=== PATIENT | male | born 1945 | race Caucasian/White ===

== ENCOUNTER 2018-10-21 10:29 | Inpatient (IN) | payer MEDICARE, BC ==
[~2018-10-21] VITALS: Ht 180.3 cm; Wt 78.2 kg
[~2018-10-21 10:29] MED LIST: ALBUTEROL2.5 MG/31 INH; AMITRIPTYLINE H75 M2 PO; ASMANEX220 MC1 INH; BENZONATATE200 MG PO; CALCIUM 600 +1 EAC1 PO; CELEXA 10 MG TA10 M1 PO; CLARITIN10 MG PO; EXPECTORANT200 MG PO; FIBER0.52 GM PO; FLUNISOLIDE25 ML NASAL; FORMOTEROL FUMAR INH; HYDROCHLOROTHIA25 M1 PO; NORVASC5 MG PO; OMEPRAZOLE40 MG PO; PREDNISOLONE 5 M5 M1 PO; PREDNISONE 10 M10 MG PO; PROVENTIL HFA6.7 G1 INH; SINGULAIR 5 MG C5 M1 PO
[2018-10-21 10:34] VITALS: BP 164/67
[2018-10-21] MEDS ORDERED: LORATIDINE 10 M10 M1 PO (10:45)
[2018-10-21] MEDS ORDERED: CARDIZEM CD120 MG PO (10:48)
[2018-10-21] MEDS ORDERED: ZANAFLEX2 MG PO (10:48)
[2018-10-21] MEDS ORDERED: XARELTO10 MG PO (10:48)
[2018-10-21] MEDS ORDERED: FLOMAX0.4 MG PO (10:49)
[2018-10-21 11:17] LABS: ABSOLUTE EOSINOPHILS 0.1 thou/uL (0.0-0.7); ABSOLUTE LYMPHOCYTES 0.7 thou/uL (0.8-5.3); ABSOLUTE MONOCYTES 0.5 thou/uL (0.0-1.2); ABSOLUTE NEUTROPHILS 5.6 thou/uL (1.6-8.1); BASOPHILS 0.5 %; EOSINOPHILS 1.8 %; HEMATOCRIT 42.3 % (42.0-52.0); HEMOGLOBIN 14.5 gm/dL (14.0-18.0); LYMPHOCYTES 10.3 %; MCH 32.8 pg (26.0-34.0); MCHC 34.3 g/dL (28.0-37.0); MCV 95.5 fL (80.0-100.0); MONOCYTES 7.2 %; MPV 8.2 fl. (7.2-11.1); NUCLEATED RBCS 0 /100WBC; PLATELET COUNT* 173 thou/uL (150-400); POLYS 80.2 %; RBC 4.43 mil/uL (4.50-6.00); RDW-CV 13.4 % (10.5-14.5)
[2018-10-21 11:28] LABS: APTT 23.1 Seconds (25.0-31.3); PROTIME 9.8 Seconds (9.20-11.50)
[2018-10-21 11:29] LABS: ALBUMIN 2.5 g/dL (3.4-5.0); CALCIUM 6.9 mg/dL (8.5-10.1); CREATININE 0.9 mg/dL (0.6-1.3); TOTAL BILIRUBIN 0.4 mg/dL (<0.1-1.0); TOTAL PROTEIN 5.3 g/dL (6.4-8.2)
[2018-10-21 11:31] LABS: POTASSIUM 2.5 mmol/L (3.5-5.1)
[2018-10-21 15:30] VITALS: BP 139/78
[2018-10-21 15:55] VITALS: BP 150/82
[2018-10-21 21:40] VITALS: BP 141/74
[2018-10-22] VITALS: BP 120/67
[2018-10-22 03:40] VITALS: BP 128/61
[2018-10-22 04:48] LABS: ABSOLUTE EOSINOPHILS 0.1 thou/uL (0.0-0.7); ABSOLUTE LYMPHOCYTES 1.1 thou/uL (0.8-5.3); ABSOLUTE MONOCYTES 0.6 thou/uL (0.0-1.2); BASOPHILS 0.6 %; EOSINOPHILS 2.1 %; HEMATOCRIT 36.1 % (42.0-52.0); LYMPHOCYTES 18.7 %; MCH 32.4 pg (26.0-34.0); MCHC 34.1 g/dL (28.0-37.0); MCV 95.1 fL (80.0-100.0); MPV 8.3 fl. (7.2-11.1); NUCLEATED RBCS 0 /100WBC; PLATELET COUNT* 163 thou/uL (150-400); POLYS 68.6 %; RDW-CV 13.1 % (10.5-14.5); WBC 5.8 thou/uL (4.0-11.0)
[2018-10-22 05:08] LABS: CALCIUM 8.7 mg/dL (8.5-10.1); POTASSIUM 3.8 mmol/L (3.5-5.1)
[2018-10-22 05:16] LABS: HEMOGLOBIN 12.3 gm/dL (14.0-18.0)
[2018-10-22 08:00] VITALS: BP 149/74
[2018-10-22 12:39] VITALS: BP 149/74
[2018-10-22 14:13] VITALS: BP 154/72
--- NOTE | 2018-10-22 14:15 | EKG ---
[place] [address] ELECTROCARDIOGRAM REPORT Name: ALEXANDRA TOUSSAINT Room: [address] ADM IN M.R.#: [id number] Admission: 10/21/18 Attend Phys: Tonny Montano MD Discharge: Date of : 41 Report #: [id number] THIS REPORT FOR: //name// [facility] ED Test Date: 2018-10-21 Test Time: 14:00:44 Pat Name: ALEXANDRA TOUSSAINT Department: Room: [address] Gender: M Labor Relations Analyst: MILAD : 1945 Requested By: Kareen Gooden Order Number: [id number] [place] MD: Roger Lam Measurements Intervals [place] Rate: 95 P: 50 [place]: 168 QRS: -87 QRSD: 139 T: 37 QT: 384 QTc: 483 Interpretive Statements Sinus rhythm RBBB and L anterior hemiblock Compared to ECG 10/31/2012 21:26:27 Left anterior fascicular block now present Left posterior fascicular block no longer present Electronically Signed On 10-22-2018 14:15:06 CDT by Roger Lam [email or web address] <ELECTRONICALLY SIGNED> By: Roger Lam MD, [facility] 10/22/18 1415 1400 1400 Roger Lam MD, [facility] /EPI
== END 2018-10-22 14:15 | disposition home or self-care (01) | DRG 641 ==
LOC: M.ERS 10:29 → M.3W 13:33 → M.TBA-ER 13:33 → M.3W 15:17
PROVIDERS: Personal Emergency Response Attendant; ADMIT Internal Medicine
DX: E87.6 Hypokalemia (principal); E44.0 Moderate protein-calorie malnutrition; J44.9 Chronic obstructive pulmonary disease, unspecified; K21.9 Gastro-esophageal reflux disease without esophagitis; M79.7 Fibromyalgia; M19.90 Unspecified osteoarthritis, unspecified site; G89.29 Other chronic pain; N40.0 Benign prostatic hyperplasia without lower urinary tract symptoms; Z86.718 Personal history of other venous thrombosis and embolism; Z87.891 Personal history of nicotine dependence; Z79.01 Long term (current) use of anticoagulants; Z79.899 Other long term (current) drug therapy; Z88.8 Allergy status to other drugs, medicaments and biological substances

== ENCOUNTER → 2019-02-24 | Day surgery (SDC) | payer MEDICARE, BC ==
[~2019-02-24] MED LIST changes: +CARDIZEM CD120 MG PO; +FLOMAX0.4 MG PO; +LORATIDINE 10 M10 M1 PO; +XARELTO10 MG PO; +ZANAFLEX2 MG PO
--- NOTE | ~2019-02-24 | PROC ---
[address] [place] [address] PROCEDURE REPORT Name: ALEXANDRA TOUSSAINT Room: [facility]#: [id number] Admission: 02/24/19 Attend Phys: Hardeep Squires DO Discharge: Date of : 41 Report #: [id number] THIS REPORT FOR: //name// For GI report, please see the Provation report in Perceptive 7 content. By: 1212Medical Records Staff [facility] /DALJIT
[2019-02-24 09:23] LABS: HEMATOCRIT 40.6 % (42.0-52.0); HEMOGLOBIN 13.8 gm/dL (14.0-18.0); MCH 32.3 pg (26.0-34.0); MCV 94.8 fL (80.0-100.0); MPV 7.2 fl. (7.2-11.1); RBC 4.28 mil/uL (4.50-6.00); RDW-CV 13.2 % (10.5-14.5); WBC 6.7 thou/uL (4.0-11.0)
[2019-02-24 09:31] LABS: CALCIUM 8.7 mg/dL (8.5-10.1); POTASSIUM 3.7 mmol/L (3.5-5.1)
[2019-02-24 09:36] LABS: ALBUMIN 3.3 g/dL (3.4-5.0); TOTAL BILIRUBIN 0.6 mg/dL (<0.1-1.0); TOTAL PROTEIN 6.5 g/dL (6.4-8.2)
--- NOTE | 2019-02-25 18:06 | PATH ---
[address] [address] PATHOLOGY RPT PROCEDURE Name: RUDDY TOWNSEND Room: [facility]#: [id number] Admission: 02/24/19 Date of : 41 Discharge: Report #: [id number] Path Case #: [id number] [facility] Accession Number: [id number] . 01 Material submitted: . PART A: cecum - CECAL POLYP - HOT SNARE PART B: colon - PROXIMAL ASCENDING COLON POLYP - COLD SNARE. Modifiers: proximal, ascending PART C: colon - PROXIMAL TRANSVERSE COLON POLYP - HOT SNARE. Modifiers: proximal, transverse PART D: colon - MID TRANSVERSE COLON POLYP - HOT SNARE. Modifiers: mid, transverse . 01 Clinical history: . Dysphagia, diarrhea, Wang syndrome, personal Hx of colon polyps . 02 Diagnosis: A. Cecal polyp (hot snare): - Tubular adenoma, negative for high-grade dysplasia. . B. Proximal ascending colon polyp (cold snare): - Tubular adenoma, negative for high-grade dysplasia. . C. Proximal transverse colon polyp (hot snare): - Tubular adenoma, negative for high-grade dysplasia. . D. Mid transverse colon polyp (hot snare): - Tubular adenoma, negative for high-grade dysplasia. (MERA:noelle; 02/25/2019) MBR/02/25/2019 . 02 Electronically signed: . Suresh Boo MD, Pathologist NPI- [id number] . 01 Gross description: . A. Received in formalin labeled "Ruddy Townsend, cecal polyp," and additionally labeled on the requisition as "hot snare," are 3 segments of tay soft tissue measuring 0.8 x 0.5 x 0.3 cm in aggregate dimensions and ranging from 0.1 to 0.3 cm in maximum dimension. The specimen is submitted entirely in cassette A1. . B. Received in formalin labeled "Ruddy Townsend, proximal ascending colon polyp," and additionally labeled on the requisition as "cold snare," is a single segment of tay soft tissue measuring 0.5 cm in maximum dimension. The specimen is entirely submitted in cassette B1. . C. Received in formalin labeled "Ruddy Townsend, [place] [address] PATHOLOGY RPT PROCEDURE Name: RUDDY TOWNSEND Room: [facility]#: [id number] Admission: 02/24/19 Date of : 41 Discharge: Report #: [id number] Path Case #: [id number] colon polyp," and additionally labeled on the requisition as "hot snare," is a single segment of tay soft tissue measuring 0.4 cm in maximum dimension. The specimen is entirely submitted in cassette C1. . D. Received in formalin labeled "Hennrich, Ruddy, mid transverse colon polyp," and additionally labeled on the requisition as "hot snare," are 4 segments of tay soft tissue measuring 1.0 x 0.8 x 0.3 cm in aggregate dimensions and ranging from 0.1 to 0.6 cm in maximum dimension. The specimen is submitted entirely in cassette D1. (TSD; 02/24/2019) TOB/TOB . 02 Pathologist provided ICD-10: D12.0, D12.2, D12.3 . 02 CPT . 082299, 048567, 949335, 014453 Specimen Comment: A courtesy copy of this report has been sent to Specimen Comment: [phone], , . Specimen Comment: Report sent to ,DR JUNG / DR EDWARDS Performed at: [address], [place] [id number] MD Jose Luis Pradhan MD Phone: [phone] Performed at: [facility] [address] [place] , [place], [place] [id number] MD Suresh Boo MD Phone: [phone]
== END | disposition home or self-care (01) ==
LOC: M.SUR 08:15
PROVIDERS: Internal Medicine Gastroenterology
DX: D12.0 Benign neoplasm of cecum (principal); D12.3 Benign neoplasm of transverse colon; D12.2 Benign neoplasm of ascending colon; K57.30 Diverticulosis of large intestine without perforation or abscess without bleeding; R13.10 Dysphagia, unspecified; K64.4 Residual hemorrhoidal skin tags; Z86.010 Personal history of colon polyps; Z88.8 Allergy status to other drugs, medicaments and biological substances; Z79.899 Other long term (current) drug therapy; Z98.890 Other specified postprocedural states

== ENCOUNTER 2019-06-19 21:22 | Emergency (ER) | payer MEDICARE, BC ==
[~2019-06-19] VITALS: Ht 177.8 cm; Wt 79.4 kg
[2019-06-19] MEDS ORDERED: AUGMENTIN 875-1 EACH PO (21:55)
[2019-06-19 22:28] VITALS: BP 170/68
== END 2019-06-19 22:28 | disposition home or self-care (01) ==
LOC: M.ERS 21:22
DX: S51.811A Laceration without foreign body of right forearm, initial encounter (principal); J45.909 Unspecified asthma, uncomplicated; K21.9 Gastro-esophageal reflux disease without esophagitis; Z90.79 Acquired absence of other genital organ(s); Z95.2 Presence of prosthetic heart valve; Z86.718 Personal history of other venous thrombosis and embolism; Z88.8 Allergy status to other drugs, medicaments and biological substances; Z88.6 Allergy status to analgesic agent; Z87.891 Personal history of nicotine dependence; W54.0XXA Bitten by dog, initial encounter; Y92.89 Other specified places as the place of occurrence of the external cause; Y93.89 Activity, other specified; Y99.8 Other external cause status

== ENCOUNTER 2019-06-29 09:50 | Emergency (ER) | payer MEDICARE, BC ==
[~2019-06-29] VITALS: Ht 177.8 cm; Wt 79.4 kg
[~2019-06-29 09:50] MED LIST changes: +AUGMENTIN 875-1 EACH PO
[2019-06-29 10:33] VITALS: BP 168/78
== END 2019-06-29 10:34 | disposition home or self-care (01) ==
LOC: M.ERS 09:50
DX: S51.811D Laceration without foreign body of right forearm, subsequent encounter (principal); J45.909 Unspecified asthma, uncomplicated; N40.0 Benign prostatic hyperplasia without lower urinary tract symptoms; J44.9 Chronic obstructive pulmonary disease, unspecified; K21.9 Gastro-esophageal reflux disease without esophagitis; Z87.01 Personal history of pneumonia (recurrent); Z86.718 Personal history of other venous thrombosis and embolism; Z88.6 Allergy status to analgesic agent; Z88.5 Allergy status to narcotic agent; Z88.8 Allergy status to other drugs, medicaments and biological substances; Z87.891 Personal history of nicotine dependence; X58.XXXD Exposure to other specified factors, subsequent encounter

== ENCOUNTER 2019-07-05 22:46 | Emergency (ER) | payer MEDICARE, BC ==
[~2019-07-05] VITALS: Ht 177.8 cm; Wt 79.4 kg
[2019-07-06 00:20] LABS: ABSOLUTE LYMPHOCYTES 1.4 thou/uL (0.8-5.3); ABSOLUTE MONOCYTES 0.7 thou/uL (0.0-1.2); ABSOLUTE NEUTROPHILS 6.4 thou/uL (1.6-8.1); BASOPHILS 0.6 %; EOSINOPHILS 0.1 %; HEMATOCRIT 40.9 % (42.0-52.0); HEMOGLOBIN 14.3 gm/dL (14.0-18.0); LYMPHOCYTES 16.1 %; MCH 34.7 pg (26.0-34.0); MCV 99.1 fL (80.0-100.0); MONOCYTES 8.6 %; MPV 7.9 fl. (7.2-11.1); NUCLEATED RBCS 0 /100WBC; PLATELET COUNT* 211 thou/uL (150-400); POLYS 74.6 %; RBC 4.13 mil/uL (4.50-6.00); RDW-CV 13.6 % (10.5-14.5); WBC 8.6 thou/uL (4.0-11.0)
[2019-07-06 00:24] LABS: CALCIUM 9.5 mg/dL (8.5-10.1); CREATININE 1.2 mg/dL (0.6-1.3); POTASSIUM 3.8 mmol/L (3.5-5.1)
[2019-07-06 00:29] LABS: ALBUMIN 3.3 g/dL (3.4-5.0); TOTAL BILIRUBIN 0.3 mg/dL (<0.1-1.0); TOTAL PROTEIN 6.7 g/dL (6.4-8.2)
[2019-07-06 02:10] VITALS: BP 173/80
--- NOTE | 2019-07-06 14:07 | EKG ---
[place] [address] ELECTROCARDIOGRAM REPORT Name: ALEXANDRA TOUSSAINT Room: [facility]#: [id number] Admission: 07/05/19 Attend Phys: Discharge: 07/06/19 Date of : 41 Report #: [id number] THIS REPORT FOR: //name// [facility] ED Test Date: 2019-07-05 Test Time: 23:01:14 Pat Name: ALEXANDRA TOUSSAINT Department: Room: Gender: M Welfare Eligibility Interviewer: [place] : 1945 Requested By: Britt Freeman Order Number: [id number] MD: Dedrick Grimaldo Measurements Intervals [place] Rate: 83 P: 39 [place]: 178 QRS: -81 QRSD: 148 T: 77 QT: 408 QTc: 480 Interpretive Statements Sinus rhythm Probable left atrial enlargement RBBB and LAFB Compared to ECG 10/21/2018 14:00:44 no change Electronically Signed On 07-06-2019 14:07:31 CORK INSULATOR by Dedrick Grimaldo [email or web address] <ELECTRONICALLY SIGNED> By: Dedrick Grimaldo MD, [facility] 07/06/19 1407 00 00 Dedrick Grimaldo MD, [facility] /EPI
== END 2019-07-06 02:00 | disposition home or self-care (01) ==
LOC: M.ERS 22:46
PROVIDERS: Emergency Medicine
DX: S51.812A Laceration without foreign body of left forearm, initial encounter (principal); F10.129 Alcohol abuse with intoxication, unspecified; J45.909 Unspecified asthma, uncomplicated; J44.9 Chronic obstructive pulmonary disease, unspecified; K21.9 Gastro-esophageal reflux disease without esophagitis; K58.9 Irritable bowel syndrome, unspecified; Z98.52 Vasectomy status; Z86.718 Personal history of other venous thrombosis and embolism; Z87.891 Personal history of nicotine dependence; Z88.6 Allergy status to analgesic agent; Z88.8 Allergy status to other drugs, medicaments and biological substances; W18.39XA Other fall on same level, initial encounter; Y93.89 Activity, other specified; Y92.098 Other place in other non-institutional residence as the place of occurrence of the external cause; Y99.8 Other external cause status; Y90.7 Blood alcohol level of 200-239 mg/100 ml

== ENCOUNTER → 2019-07-22 | Outpatient (CLI) | payer MEDICARE, BC | LOC: M.MRI 12:53 | DX: I65.23 Occlusion and stenosis of bilateral carotid arteries (principal); G31.9 Degenerative disease of nervous system, unspecified; H70.91 Unspecified mastoiditis, right ear; R90.82 White matter disease, unspecified; G93.89 Other specified disorders of brain ==

== ENCOUNTER 2020-01-29 18:50 | Emergency (ER) | payer MEDICARE, BC ==
[~2020-01-29] VITALS: Ht 177.8 cm; Wt 76.2 kg
[2020-01-29 21:33] LABS: ABSOLUTE LYMPHOCYTES 0.5 thou/uL (0.8-5.3); ABSOLUTE MONOCYTES 0.7 thou/uL (0.0-1.2); ABSOLUTE NEUTROPHILS 7.5 thou/uL (1.6-8.1); BASOPHILS 0.4 %; EOSINOPHILS 0.1 %; HEMATOCRIT 37.2 % (42.0-52.0); HEMOGLOBIN 13.2 gm/dL (14.0-18.0); LYMPHOCYTES 6.2 %; MCH 35.1 pg (26.0-34.0); MCHC 35.5 g/dL (28.0-37.0); MCV 98.7 fL (80.0-100.0); MONOCYTES 8.3 %; MPV 6.9 fl. (7.2-11.1); NUCLEATED RBCS 0 /100WBC; PLATELET COUNT* 187 thou/uL (150-400); RBC 3.76 mil/uL (4.50-6.00); RDW-CV 13.4 % (10.5-14.5); WBC 8.8 thou/uL (4.0-11.0)
[2020-01-29 21:41] LABS: CALCIUM 8.7 mg/dL (8.5-10.1); CREATININE 1.1 mg/dL (0.6-1.3)
[2020-01-29 21:45] LABS: ALBUMIN 3.3 g/dL (3.4-5.0); TOTAL BILIRUBIN 0.5 mg/dL (<0.1-1.0); TOTAL PROTEIN 6.2 g/dL (6.4-8.2)
[2020-01-30] MEDS ORDERED: HYDROCODON-ACE1 EAC8 PO (00:22)
[2020-01-30] MEDS ORDERED: KEFLEX500 M1 PO (00:29)
[2020-01-30 00:35] VITALS: BP 140/81
--- NOTE | 2020-01-30 09:22 | EKG ---
[place] [address] ELECTROCARDIOGRAM REPORT Name: ALEXANDRA TOUSSAINTVIN Room: [facility]#: [id number] Admission: 01/29/20 Attend Phys: Discharge: 01/30/20 Date of : 41 Date of Service: 01/29/202107 Report #: [id number] THIS REPORT FOR: //name// [facility] ED Test Date: 2020-01-29 Test Time: 21:08:07 Pat Name: ALEXANDRA TOSUSAINT Department: Room: Gender: Lpn Home Health: CHEPE : 1945 Requested By: Britt Freeman Order Number: [id number] MD: Garcia Mcgovern Measurements Intervals [place] Rate: 89 P: 55 [place]: 164 QRS: -82 QRSD: 140 T: 45 QT: 399 QTc: 486 Interpretive Statements Sinus rhythm Probable left atrial enlargement RBBB and LAFB Baseline wander in lead(s) V3 Compared to ECG 07/05/2019 23:01:14 No significant changes Electronically Signed On 01-30-2020 9:22:07 CDT by Garcia Mcgovern [email or web address] <ELECTRONICALLY SIGNED> By: Keli Mcgovern MD, [facility] 01/30/20921 07 07 Keli Mcgovern MD, [facility] /EPI
== END 2020-01-30 00:35 | disposition home or self-care (01) ==
LOC: M.ERS 18:50
PROVIDERS: Emergency Medicine
DX: S51.812A Laceration without foreign body of left forearm, initial encounter (principal); K21.9 Gastro-esophageal reflux disease without esophagitis; K58.9 Irritable bowel syndrome, unspecified; J45.909 Unspecified asthma, uncomplicated; J44.9 Chronic obstructive pulmonary disease, unspecified; Z98.52 Vasectomy status; Z95.5 Presence of coronary angioplasty implant and graft; Z86.718 Personal history of other venous thrombosis and embolism; Z87.891 Personal history of nicotine dependence; Z88.6 Allergy status to analgesic agent; Z88.8 Allergy status to other drugs, medicaments and biological substances; W18.39XA Other fall on same level, initial encounter; Y93.89 Activity, other specified; Y99.8 Other external cause status; Y92.89 Other specified places as the place of occurrence of the external cause